=== PATIENT | male | born 1975 | race Caucasian/White ===

== ENCOUNTER 2017-08-19 12:50 | Inpatient (IN) | payer MEDICAID ==
[~2017-08-19] VITALS: Ht 172.7 cm; Wt 84.3 kg
[2017-08-19 15:17] LABS: GLUCOSE,POINT OF CARE 172 MG/DL (70-110)
[2017-08-19] MEDS ORDERED: SODIUM CHLORIDE 0.9% 1,000 ML IV ONE ×2 (15:45→18:45)
[2017-08-19 16:11] LABS: EOSINOPHILS % (AUTO) 0 % (1.0-6.0); HEMATOCRIT 47.3 % (41-53); HEMOGLOBIN 16.1 g/dL (13.5-17.5); LYMPHOCYTES # (AUTO) 0.6 K/uL (1.0-4.8); LYMPHOCYTES % (AUTO) 3.3 % (22.0-44.0); MEAN CORPUSCULAR HEMOGLOBIN 30.3 pg (26.0-34.0); MEAN CORPUSCULAR HGB CONC 34.1 G/dL (31.0-37.0); MEAN CORPUSCULAR VOLUME 89 fL (80-100); MONOCYTES # (AUTO) 0.7 K/uL (0.1-1.0); MONOCYTES % (AUTO) 3.9 % (2.0-9.0); NEUTROPHILS # (AUTO) 15.8 K/uL (1.8-7.7); PLATELET COUNT (AUTO) 194 K/uL (150-450); RED BLOOD CELL COUNT(AUTO) 5.32 MIL/uL (4.50-5.90); RED CELL DISTRIBUTION WIDTH 12.9 % (11.5-14.5)
[2017-08-19 16:15] LABS: NEUTROPHILS % (AUTO) 92.8 % (40.0-70.0)
[2017-08-19 16:27] LABS: ANION GAP 10 mmol/L (8-16); CARBON DIOXIDE 29 mmol/L (22-29); CHLORIDE 101 mmol/L (98-107); CREATININE 0.97 mg/dL (0.60-1.30); GLOMERULAR FILTR. RATE CALC > 60 mL/min (>60); POTASSIUM 3.8 mmol/L (3.5-5.1); SODIUM SERUM 140 mmol/L (136-145); UREA NITROGEN, BLOOD 19 mg/dL (7-18)
[2017-08-19 16:28] LABS: INFLUENZA TYPE B NEGATIVE FOR TYPE B (NEGATIVE)
[2017-08-19] MEDS ORDERED: ONDANSETRON HCL 4 MG/2 ML VIAL IVP ONE ×2 (16:30→19:30)
[2017-08-19 16:52] LABS: ALANINE AMINOTRANSFERASE 37 U/L (12-78); ALBUMIN 4.5 g/dL (3.4-5.0); ASPARTATE AMINOTRANSFERASE 23 U/L (15-37); BILIRUBIN,TOTAL 0.4 mg/dL (0.1-1.0); CREATINE KINASE MB 2.4 ng/mL (0-5); CREATINE KINASE, TOTAL 136 U/L (39-308); TOTAL PROTEIN, SERUM 7.9 g/dL (6.4-8.2)
[2017-08-19 17:37] LABS: RBC MORPHOLOGY COMMENT NORMAL RBC MORPH
[2017-08-19 17:50] LABS: APPEARANCE,URINE CLOUDY (CLEAR); GLUCOSE, URINE (UA) 100 mg/dL (NEGATIVE); KETONES,URINE 15 mg/dL (NEGATIVE); LEUKOCYTE ESTERASE ,URINE NEGATIVE (NEGATIVE); OCCULT BLOOD,URINE NEGATIVE (NEGATIVE); PH,URINE 7.5 (5.0-8.0); PROTEIN,URINE TRACE (NEGATIVE)
[2017-08-19 17:51] LABS: ADD UA MICROSCOPIC YES
[2017-08-19 18:21] LABS: SQUAMOUS EPITHELIAL CELL,UR Few /LPF (None Seen)
[2017-08-19] MEDS ORDERED: MECLIZINE HCL 25 MG TABLET PO ONE (19:30)
[2017-08-19] MEDS ORDERED: ASPIRIN 325 MG EC TABLET PO ONE (20:30)
[2017-08-19] MEDS ORDERED: IOVERSOL 320 MG/ML 100 ML VIAL ONE (20:32)
[2017-08-19] MEDS ORDERED: GADOBUTROL 1 MMOL/ML 10 ML VIAL IVP ONE (21:10)
[2017-08-19] MEDS ORDERED: 0.9% SODIUM CHLORIDE 10 ML SYRINGE IVP PRN (21:30)
[2017-08-19] MEDS ORDERED: ONDANSETRON HCL 4 MG/2 ML VIAL IVP PRN (21:30)
[2017-08-19] MEDS ORDERED: ACETAMINOPHEN 325 MG TABLET PO PRN (21:30)
[2017-08-19 23:44] LABS: PROTHROMBIN TIME 10.7 SEC (9.4-11.6)
[2017-08-20] VITALS (7 sets, daily range): BP systolic 142–158; BP diastolic 92–109
[2017-08-20] MEDS ORDERED: LABETALOL HCL 5 MG/ML 20 ML VIAL IVP PRN (00:15)
[2017-08-20] MEDS ORDERED: ONDANSETRON HCL 4 MG/2 ML VIAL IM PRN (00:15)
[2017-08-20] MEDS ORDERED: INFLUENZA VIRUS VACCINE QVS 2017-18 (3YR+)/PF 60 MCG/0.5 ML SYRINGE IM ONE (00:45)
[2017-08-20] MEDS ORDERED: SODIUM CHLORIDE 3% 500 ML IV SCH (01:00)
[2017-08-20 07:13] LABS: PROTHROMBIN TIME 10.5 SEC (9.4-11.6)
[2017-08-20 07:29] LABS: ALANINE AMINOTRANSFERASE 34 U/L (12-78); ANION GAP 10 mmol/L (8-16); ASPARTATE AMINOTRANSFERASE 20 U/L (15-37); BILIRUBIN,TOTAL 0.5 mg/dL (0.1-1.0); CALCIUM, TOTAL 8.8 mg/dL (8.8-10.5); CARBON DIOXIDE 27 mmol/L (22-29); CHLORIDE 101 mmol/L (98-107); CHOL/HDL RATIO 4.8 (4.2-7.3); CREATININE 0.73 mg/dL (0.60-1.30); GLOMERULAR FILTR. RATE CALC > 60 mL/min (>60); POTASSIUM 3.3 mmol/L (3.5-5.1); SODIUM SERUM 138 mmol/L (136-145); TOTAL PROTEIN, SERUM 7.4 g/dL (6.4-8.2); UREA NITROGEN, BLOOD 13 mg/dL (7-18)
[2017-08-20] MEDS ORDERED: ASPIRIN 81 MG CHEWABLE TABLET PO SCH (09:00)
[2017-08-20] MEDS ORDERED: ONDANSETRON HCL 4 MG/2 ML VIAL IVP PRN (09:50)
[2017-08-20] MEDS: HEPARIN SODIUM,PORCINE 5,000 UNITS/ML VIAL SQ SCH ×3 (10:26→23:31)
[2017-08-20] MEDS: ATORVASTATIN CALCIUM 20 MG TABLET PO SCH (10:26)
[2017-08-20] MEDS: POTASSIUM CHLORIDE 20 MEQ ER TABLET PO PRN (10:27)
[2017-08-20] MEDS: POTASSIUM CHL 10 MEQ/WATER 50 ML IV PRN ×3 (17:00→22:58)
[2017-08-20] MEDS ORDERED: SODIUM CHLORIDE 0.9% 250 ML IV ONE (17:19)
[2017-08-20] MEDS: OXYGEN THERAPY IH SCH (20:00)
[2017-08-21] MEDS: POTASSIUM CHL 10 MEQ/WATER 50 ML IV PRN ×6 (03:00→14:23)
[2017-08-21 04:34] VITALS: BP 144/98
[2017-08-21] MEDS ORDERED: SODIUM CHLORIDE 0.9% 500 ML IV ONE (06:00)
[2017-08-21 06:29] LABS: EOSINOPHILS % (AUTO) 0 % (1.0-6.0); HEMATOCRIT 47.4 % (41-53); HEMOGLOBIN 16.5 g/dL (13.5-17.5); LYMPHOCYTES # (AUTO) 0.8 K/uL (1.0-4.8); LYMPHOCYTES % (AUTO) 5.6 % (22.0-44.0); MEAN CORPUSCULAR HEMOGLOBIN 30.7 pg (26.0-34.0); MEAN CORPUSCULAR HGB CONC 34.7 G/dL (31.0-37.0); MEAN CORPUSCULAR VOLUME 88 fL (80-100); MONOCYTES # (AUTO) 0.7 K/uL (0.1-1.0); MONOCYTES % (AUTO) 5.3 % (2.0-9.0); PLATELET COUNT (AUTO) 217 K/uL (150-450); RED BLOOD CELL COUNT(AUTO) 5.37 MIL/uL (4.50-5.90); RED CELL DISTRIBUTION WIDTH 13.3 % (11.5-14.5); WHITE BLOOD COUNT (AUTO) 13.5 K/uL (4.5-11.0)
[2017-08-21 06:40] LABS: NEUTROPHILS % (AUTO) 89.1 % (40.0-70.0)
[2017-08-21 06:53] LABS: HEMOGLOBIN A1C 5.8 % (4.5-6.2)
[2017-08-21 07:00] LABS: ANION GAP 6 mmol/L (8-16); CALCIUM, TOTAL 9.2 mg/dL (8.8-10.5); CARBON DIOXIDE 29 mmol/L (22-29); CHLORIDE 102 mmol/L (98-107); CREATININE 0.88 mg/dL (0.60-1.30); GLOMERULAR FILTR. RATE CALC > 60 mL/min (>60); POTASSIUM 3.7 mmol/L (3.5-5.1); SODIUM SERUM 137 mmol/L (136-145); THYROID STIMULATING HORMONE 0.37 uIU/mL (0.36-3.74); UREA NITROGEN, BLOOD 15 mg/dL (7-18)
[2017-08-21 07:46] VITALS: BP 145/94
[2017-08-21] MEDS: OXYGEN THERAPY IH SCH ×2 (08:00→08:40)
[2017-08-21] MEDS: HEPARIN SODIUM,PORCINE 5,000 UNITS/ML VIAL SQ SCH ×2 (08:40→15:44)
[2017-08-21] MEDS: ASPIRIN 81 MG CHEWABLE TABLET PO SCH (08:40)
[2017-08-21] MEDS: ATORVASTATIN CALCIUM 20 MG TABLET PO SCH (08:40)
[2017-08-21 11:08] VITALS: BP 156/95
[2017-08-21 15:24] VITALS: BP 152/99
[2017-08-21] MEDS: ACETAMINOPHEN 325 MG TABLET PO PRN (16:48)
[2017-08-21] MEDS: POTASSIUM CHLORIDE 20 MEQ ER TABLET PO PRN (18:27)
[2017-08-21 20:42] VITALS: BP 136/106
[2017-08-21 21:42] LABS: APPEARANCE,URINE CLEAR (CLEAR); GLUCOSE, URINE (UA) NEGATIVE (NEGATIVE); KETONES,URINE NEGATIVE (NEGATIVE); LEUKOCYTE ESTERASE ,URINE NEGATIVE (NEGATIVE); OCCULT BLOOD,URINE NEGATIVE (NEGATIVE); PROTEIN,URINE POS 1+ (NEGATIVE)
[2017-08-21 21:58] LABS: ADD UA MICROSCOPIC NO
[2017-08-22 00:06] VITALS: BP 151/102
[2017-08-22 05:32] VITALS: BP_SYST 120; BP_SYST 128; BP_DIAS 71
[2017-08-22 08:34] VITALS: BP 149/110
[2017-08-22] MEDS: ASPIRIN 81 MG CHEWABLE TABLET PO SCH (09:00)
[2017-08-22] MEDS: ATORVASTATIN CALCIUM 20 MG TABLET PO SCH (09:00)
[2017-08-22] MEDS: HEPARIN SODIUM,PORCINE 5,000 UNITS/ML VIAL SQ SCH ×3 (09:00→17:08)
[2017-08-22] MEDS: ACETAMINOPHEN 325 MG TABLET PO PRN (10:28)
[2017-08-22] MEDS: OXYGEN THERAPY IH SCH ×2 (10:28→20:00)
[2017-08-22 11:13] VITALS: BP 158/103
[2017-08-22 15:39] VITALS: BP 146/101
[2017-08-22 20:43] VITALS: BP 153/112
[2017-08-23 00:21] VITALS: BP 156/103
[2017-08-23 04:55] VITALS: BP 152/104
[2017-08-23 07:28] VITALS: BP 151/114
[2017-08-23] MEDS: ASPIRIN 81 MG CHEWABLE TABLET PO SCH (08:33)
[2017-08-23] MEDS: ACETAMINOPHEN 325 MG TABLET PO PRN (08:33)
[2017-08-23] MEDS: OXYGEN THERAPY IH SCH (08:33)
[2017-08-23] MEDS: HEPARIN SODIUM,PORCINE 5,000 UNITS/ML VIAL SQ SCH ×2 (08:33)
[2017-08-23] MEDS: ATORVASTATIN CALCIUM 20 MG TABLET PO SCH (08:33)
[2017-08-23 08:38] LABS: ANTITHROMBIN, ENZYMATIC ACTVTY 118 % (75-135); PROTEIN S AG-TOTAL 79 % (60-150); PROTEIN S, FREE 138 % (57-157)
[2017-08-23 11:07] VITALS: BP 159/115
[2017-08-23] MEDS ORDERED: ATOR20TA86 PO (12:50)
[2017-08-23] MEDS ORDERED: ASPI81TA39 PO (12:50)
[2017-08-23 14:40] LABS: ANA,IFA (TITER & PATTERN) Negative
[2017-08-23 15:42] VITALS: BP 133/87
[2017-08-23 16:40] LABS: PROTEIN C AG-TOTAL 136 % (60-150)
== END 2017-08-23 16:10 | disposition home or self-care (01) | DRG 45 ==
LOC: EMS 12:56 → 5N 20:59
PROVIDERS: ADMIT Hospitalist; ATTEND Hospitalist
DX: I63.9 Cerebral infarction, unspecified (principal); D72.829 Elevated white blood cell count, unspecified; Z28.21 Immunization not carried out because of patient refusal
CPT/HCPCS: 70450; 70544; 70549; 70551; 81241; 82607; 82746; 82962; 83036; 83930; 84132; 84443; 85300; 85301; 85302; 85305; 85306; 86038; 87040; 87804; 92523; 93005; 93306; 96361; 96374; 96376; 97110; 97112; 97116; 97162; 97166; 97530; 99291; A9585; G0480; J1644; J2405; J3480; J7030; J7040; J7050